=== PATIENT | female | born 1950 | race Two or more races ===

== ENCOUNTER 2021-12-17 06:44 | Emergency (ER) | payer OTHER ==
[~2021-12-17] VITALS: Ht 160 cm; Wt 56.7 kg
== END 2021-12-17 10:22 | disposition home or self-care (01) ==
LOC: ER 06:44
DX: M62.838 Other muscle spasm (principal); I95.9 Hypotension, unspecified

== ENCOUNTER 2023-09-05 05:40 | Day surgery (SDC) | payer OTHER | END 2023-09-05 15:25 | disposition home or self-care (01) | LOC: AMB-ENDOS 05:40 | PROVIDERS: ATTEND Surgery | DX: D12.2 Benign neoplasm of ascending colon (principal); D12.9 Benign neoplasm of anus and anal canal; K62.5 Hemorrhage of anus and rectum; R93.5 Abnormal findings on diagnostic imaging of other abdominal regions, including retroperitoneum; K64.8 Other hemorrhoids; Z20.822 Contact with and (suspected) exposure to COVID-19 ==